=== PATIENT | male | born 1975 | race Hispanic/Latino ===

== ENCOUNTER 2018-06-25 08:58 | Outpatient (CLI) | payer OTHER ==
--- NOTE | 2018-06-25 09:48 | CT ---
CT ABDOMEN AND PELVIS WITHOUT CONTRAST: History: Acute left flank pain. Technique: Multiple contiguous axial images were obtained in a CT of the abdomen and pelvis without c ontrast. Coronal reformats were performed. FINDINGS: There is a triangular calcification along the left pelvic sidewall measuring approximately 8 mm in gr eatest dimension. The ureter is not dilated but this is in the region of the ureter and could potenti ally represent a left ureteral calcification. No significant hydronephrosis is seen on either side. N o other calcifications are seen in the left kidney. There is a tiny punctate 1 mm calcification which his nonobstructing in the right kidney. The liver, gallbladder, adrenal glands, spleen, and pancreas are unremarkable, although evaluation is limited without IV contrast. The large and small bowel are unremarkable. The appendix is unremarkable. No abnormal or pelvic lymph adenopathy are seen. Mild degenerative changes are seen in the spine. The visualized inferior thorax and abdominal wall so ft tissues are unremarkable. IMPRESSION: 1. Possible left mid ureteral calcification. 2. Nonobstructing right renal calcification. POS: [facility]LL[facility]
== END 2018-06-25 08:59 | disposition home or self-care (01) ==
LOC: MADCT 08:58
PROVIDERS: ATTEND Family Medicine
DX: R10.9 Unspecified abdominal pain (principal); N20.0 Calculus of kidney
CPT/HCPCS: 74176